=== PATIENT | female | born 1950 | race Caucasian/White ===

== ENCOUNTER 2019-11-27 11:51 | Emergency (ER) | payer MEDICARE ==
[~2019-11-27] VITALS: Ht 160 cm; Wt 72.6 kg
[2019-11-27 11:59] VITALS: BP_SYST 104
[2019-11-27] MEDS ORDERED: KETOROLAC TROMETHAMINE 60 MG/2 ML VIAL IM ONE (13:45)
[2019-11-27 13:53] VITALS: BP_SYST 110
== END 2019-11-27 13:53 | disposition home or self-care (01) ==
LOC: SED 11:51
DX: N39.0 Urinary tract infection, site not specified (principal); R10.31 Right lower quadrant pain; I10 Essential (primary) hypertension; Z90.710 Acquired absence of both cervix and uterus
CPT/HCPCS: 81002; 96372; 99283; J1885